=== PATIENT | male | born 1960 ===

== ENCOUNTER 2017-08-16 10:19 | Emergency (ER) | payer OTHER, BC ==
[2017-08-16 10:24] VITALS: RESP 16
[2017-08-16] MEDS ORDERED: ceFAZolin 1 GM in Sodium Chloride 0.9% 100 ML IVPB ONE (11:00)
[2017-08-16] MEDS ORDERED: Tdap Vaccine 0.5 ml Vial (10-64 yrs) IM ONE ×2 (11:00→12:17)
[2017-08-16] MEDS ORDERED: Lidocaine 1% Inj (20ml) SC ONE (11:01)
--- NOTE | 2017-08-16 11:04 | ED PDOC ---
Upper Extremity Pain/Injury Time Seen by Provider: 08/16/17 11:02 Chief Complaint (Nursing): Abnormal Skin Integrity Chief Complaint (Provider): hand laceration History Per: Patient (57 y/o male here with right hand laceration noted after injury with saw today at work. Unsure of tetanus status. Is right hand dominant. Denies any difficulty with moving digits.) Past Medical History Reviewed: Historical Data, Nursing Documentation, Vital Signs Vital Signs: Last Vital Signs Temp 98.4 F 08/16/17 10:24 Pulse 54 L 08/16/17 10:24 Resp 16 08/16/17 10:24 BP 139/85 08/16/17 10:24 Pulse Ox 98 08/16/17 10:24 - Family History Family History: States: No Known Family Hx - Home Medications Home Medications: Ambulatory Orders Medication Instructions Recorded Cephalexin [Keflex] 500 mg PO TID #21 capsule 08/16/17 - Allergies Allergies/Adverse Reactions: Allergies Allergy/AdvReac Type Severity Reaction Status Date / Time No Known Allergies Allergy Verified 08/16/17 10:33 Review of Systems ROS Statement: Except As Marked, All Systems Reviewed And Found Negative Physical Exam - Reviewed Nursing Documentation Reviewed: Yes Vital Signs Reviewed: Yes - Physical Exam Appears: Positive for: Well, Non-toxic, No Acute Distress Head Exam: Positive for: ATRAUMATIC, NORMAL INSPECTION, NORMOCEPHALIC Skin: Positive for: Normal Color, Warm, DRY Eye Exam: Positive for: EOMI, Normal appearance, PERRL ENT: Positive for: Normal ENT Inspection Neck: Positive for: Normal, Painless ROM Cardiovascular/Chest: Positive for: Regular Rate, Rhythm Respiratory: Positive for: CNT, Normal Breath Sounds Gastrointestinal/Abdominal: Positive for: Normal Exam, Soft Back: Positive for: Normal Inspection Extremity: Positive for: Normal ROM, Other (2.75 cm laceration dorsum of hand 2nd MCP. Able to flex and extend by 2nd MCP.) Neurologic/Psych: Positive for: Alert, Oriented - ECG O2 Sat by Pulse Oximetry: 98 - Radiology X-Ray: Viewed By Me (no fx) - Progress ED Course And Treament: Tdap 0.5 ml IM x 1 dose Ancef 1 gm iv x 1 dose HAND XRY: NO FX MOTRIN 600 MG X 1 DOSE d/w Dr. Briceno. Wound cleansed profusely prior to Dr. Briceno evaluation. Wound repair by Dr. Briceno. Patient to follow up with him outpatient with rx for keflex. Disposition - Clinical Impression Clinical Impression: Hand laceration - Patient ED Disposition Is Patient to be Admitted: No - Disposition Referrals: Patricio Briceno MD [Medical Doctor] - Disposition: Routine/Home Disposition Time: 14:56 Condition: FAIR Additional Instructions: FOLLOW UP WITH DR. BRICENO ON MONDAY Prescriptions: Cephalexin [Keflex] 500 mg PO TID #21 capsule Instructions: Wound Care (DC) Forms: [facility] ED School/Work Excuse Print Language: MAORI
--- NOTE | 2017-08-16 11:57 | RAD ---
PROCEDURE: Right Hand Radiographs. HISTORY: hand laceration; evaluate for bony injury COMPARISON: None. FINDINGS: BONES: No evidence of acute displaced fracture nor dislocation. Old non fused fracture deformity distal ulna styloid. The osseous structures otherwise appear intact JOINTS: Joint spaces preserved. No significant osteoarthritic changes. SOFT TISSUES: Overlying gauze limits reduces soft tissue and bone detail. Questionable small of laceration dorsal skin surface at the level of the distal metacarpal regions with questionable tiny amount of subcutaneous emphysema. Overlying gauze partially obscures fine soft tissue and bone detail. No radiopaque foreign bodies. OTHER FINDINGS: None. IMPRESSION: No evidence of acute displaced fracture nor dislocation. Old non fused fracture deformity distal ulna styloid. Questionable dorsal skin surface laceration as described
[2017-08-16] MEDS ORDERED: Lidocaine 1% Inj (20ml) ONE (12:19)
[2017-08-16] MEDS ORDERED: Povidone Iodine Topical 10% Sol ONE (13:31)
[2017-08-16 14:24] VITALS: BP 128/88; PULSE 68; TEMP 98
--- NOTE | 2017-08-18 03:00 | OP ---
PROCEDURE DATE: 08/16/2017 SURGEON: Patricio Briceno MD PREOPERATIVE DIAGNOSES: 1. Right index finger knuckle laceration. 2. Right hand open wound. POSTOPERATIVE DIAGNOSES: 1. Right index finger open wound. 2. Full-thickness laceration of extensor indicis ____. 3. Laceration of sagittal band of the index finger. PROCEDURES: 1. Exploration of the open wound of the right hand, . 2. Repair of the extensor tendon EIP, primary, . 3. Debridement of tendon, muscle, and bone of metacarpophalangeal joint, . ANESTHESIA: Local. BLOOD LOSS: Minimal. COMPLICATIONS: None. INDICATION: This is a right hand dominant male who presents to [facility] with a work-related injury from earlier today. The patient sustained a laceration to dorsum of his index finger metacarpophalangeal joint with a saw. There was a transverse laceration over the knuckle with open wound, exposed tendon and bone. The patient was indicated for the above procedure. The above procedure took place in the emergency room with the patient's verbal consent. Risks and benefits were explained. DESCRIPTION OF PROCEDURE: The right upper extremity was prepped and draped in the standard surgical fashion. A time-out was performed. The open wound was explored. Laceration site was identified and extended proximally and distally opening the wound at the MCP joint level. There was disruption of the extensor indicis ____ with exposure of joint and disruption and partial laceration of the capsule. The wound was bluntly dissected. Local debridement was performed with rongeur and curette. This included cleaning out of the tendon and the joint area. The wound was also cleaned with Betadine-soaked solution and irrigated. After debridement of the wound, we began repairing the EIP tendon. A 4-0 Vicryl suture was used in multiple horizontal mattress to repair the EIP tendon. After repair, there was no gapping with flexion of the finger. The normal finger cascade was restored. The wound was then copiously irrigated, hemostasis was obtained, and the skin was closed with 4-0 nylon interrupted sutures. Sterile dressing was applied of Xeroform fluffs, 4x4, and Dipak. The patient was instructed to continue with p.o. antibiotics and follow up with ak in 4 days for re-evaluation and wound check. Patricio Briceno MD [facility] # [id number]
--- NOTE | 2017-08-18 03:09 | CON ---
DATE: 08/16/2017 REASON FOR CONSULTATION: Right hand open wound, saw laceration. HISTORY OF PRESENT ILLNESS: A 57-year-old right hand dominant male who injured his right hand at work with a saw. He sustained a laceration to the dorsum of his index knuckle area. He presents to [facility] with complaints of feeding and difficulty extending the finger. I was consulted for evaluation and treatment of the patient. PHYSICAL EXAMINATION: EXTREMITIES: Right hand: There is a transverse laceration over the index knuckle area with exposure of tendon and bone. The patient has difficulty with active extension of the finger. Sensation is intact to light touch over the distal bulb. Good capillary refills. The rest of the fingers are uninjured. ASSESSMENT: Right hand open wound with laceration and exposed bone and tendon. PLAN: I discussed the above findings with the patient. At this time, I recommended urgent wound exploration, debridement and repair of the damaged structures. The patient was explained the above findings. He agrees to the above plan and underwent the above procedure in the emergency room. Patricio Briceno MD
[2017-08-18 16:01] VITALS: O2SAT 98
== END 2017-08-16 14:56 | disposition home or self-care (01) ==
LOC: H.ER 10:19
DX: S61.411A Laceration without foreign body of right hand, initial encounter (principal); W45.8XXA Other foreign body or object entering through skin, initial encounter; W27.8XXA Contact with other nonpowered hand tool, initial encounter; Y93.9 Activity, unspecified; Z23 Encounter for immunization
CPT/HCPCS: 73130; 90471; 90715; 96372; 99283; J0690